=== PATIENT | male | born 1995 | race Caucasian/White ===

== ENCOUNTER 2025-06-15 13:49 | Emergency (ER) | payer MEDICAID ==
[~2025-06-15] VITALS: Ht 177.8 cm; Wt 109.0 kg
[2025-06-15 13:51] VITALS: O2SAT 98
[2025-06-15] MEDS: LORAZEPAM 1MG TABLET PO ONE (15:45)
[2025-06-15 16:38] LABS: *AMPHETAMINES SCREEN URINE PRESUMPTIVE POSITIVE (NEGATIVE); *BARBITURATES SCREEN URINE NEGATIVE (NEGATIVE); *BENZODIAZEPINES SCREEN URINE NEGATIVE (NEGATIVE); *COCAINE SCREEN URINE NEGATIVE (NEGATIVE); CANNABINOID URINE SCREEN NEGATIVE (NEGATIVE); ECSTASY MDMA SCREEN URINE NEGATIVE (NEGATIVE); METHADONE URINE SCREEN NEGATIVE (NEGATIVE); OPIATES URINE SCREEN NEGATIVE (NEGATIVE); PHENCYCLIDINE URINE SCREEN NEGATIVE (NEGATIVE)
[2025-06-15 17:00] LABS: BASOPHILS % 0.2 % (0.0-2.0); EOSINOPHILS % 0.1 % (0.0-5.0); HEMATOCRIT. 39.8 % (42.0-52.0); HEMOGLOBIN. 14.0 g/dL (14.0-18.0); LYMPHOCYTES % 10.9 % (20.0-50.0); MEAN PLATELET VOLUME 7.6 fl (7.4-10.4); MONOCYTES % 12.5 % (2.0-8.0); NEUTROPHILS % 76.3 % (40.0-76.0); PLATELET 232 x1000/uL (130-400); RED BLOOD CELL COUNT 4.36 mill/uL (4.7-6.1); RED CELL DISTRIBUTION WIDTH 12.3 % (11.6-14.6)
[2025-06-15 17:09] LABS: CREATININE 0.8 mg/dL (0.6-1.3); UREA NITROGEN BLOOD 6 mg/dL (9-23)
[2025-06-16 01:35] LABS: ASPARTATE AMINOTRANSFERASE 66 IU/L (<34); BILIRUBIN DIRECT 0.4 mg/dL (<=3.0); BILIRUBIN TOTAL 0.9 mg/dL (0.1-1.0); PROTEIN TOTAL 7.0 g/dL (6.0-8.3)
[2025-06-16 03:30] VITALS: BP 144/100; PULSE 83; RESP 16; TEMP 36.8; O2SAT 99
[2025-06-16 04:47] LABS: CLARITY URINE CLEAR (CLEAR); COLOR URINE YELLOW (YELLOW); GLUCOSE URINE NEGATIVE (NEGATIVE); KETONES URINE NEGATIVE (NEGATIVE); LEUKOCYTE ESTERASE URINE NEGATIVE (NEGATIVE); NITRITE URINE NEGATIVE (NEGATIVE); OCCULT BLOOD URINE NEGATIVE (NEGATIVE); PH URINE 6.5 (4.5-8.0); PROTEIN URINE NEGATIVE (NEGATIVE); SPECIFIC GRAVITY URINE 1.003 (1.005-1.030); UROBILINOGEN URINE 0.2 E.U./dL (0.2-1.0)
[2025-06-16] MEDS ORDERED: QUETIAPINE FUMARATE 50MG TABLET PO SCH (21:00)
== END 2025-06-16 10:49 | disposition left against medical advice (07) ==
LOC: ER 13:49
DX: R45.851 Suicidal ideations (principal); F31.9 Bipolar disorder, unspecified; Z79.899 Other long term (current) drug therapy; Z20.822 Contact with and (suspected) exposure to COVID-19
CPT/HCPCS: 36415; 80048; 80076; 80305; 80307; 80320; 80329; 81003; 85025; 87426; 93005; 99284; G0480

== ENCOUNTER 2025-06-16 11:50 | Emergency (ER) | payer MEDICAID ==
[~2025-06-16] VITALS: Ht 177.8 cm; Wt 88.0 kg
[2025-06-16 11:56] VITALS: O2SAT 100
[2025-06-16 11:59] VITALS: BP 122/77; PULSE 85; RESP 16; TEMP 36.9; O2SAT 99
== END 2025-06-16 15:44 | disposition left against medical advice (07) ==
LOC: ER 11:50
DX: R45.851 Suicidal ideations (principal)
CPT/HCPCS: 99281